=== PATIENT | female | born 1990 | race African-American/Black ===

== ENCOUNTER 2016-12-28 09:40 | Emergency (ER) | payer SELFPAY ==
[2015-05-05 04:54] VITALS: BMI 26.6
[~2016-12-28 09:40] MED LIST: IBUPROFEN600 MG PO; PERCOCET 5-3251 TAB PO; PRENAVITE1 TAB PO
[2016-12-28 11:05] LABS: HCG SERUM NEGATIVE (NEGATIVE)
[2016-12-28 11:34] LABS: APPEARANCE CLOUDY (CLEAR); BILIRUBIN NEGATIVE (NEGATIVE); COLOR YELLOW (YELLOW); GLUCOSE NEGATIVE (NEGATIVE); KETONE NEGATIVE (NEGATIVE); LEUKOCYTE ESTERASE 2+ (NEGATIVE); NITRITE NEGATIVE (NEGATIVE); PROTEIN NEGATIVE (NEGATIVE)
[2016-12-28 11:35] LABS: BACTERIA MANY /hpf (NONE SEEN); MUCUS <1+ /lpf (NONE SEEN); RED CELLS - URINE OCC /hpf (0-5)
== END 2016-12-28 11:37 | disposition home or self-care (01) ==
LOC: D.ER 09:40
PROVIDERS: Physician Assistant
DX: B34.9 Viral infection, unspecified (principal); R50.9 Fever, unspecified; J01.90 Acute sinusitis, unspecified

== ENCOUNTER 2017-03-26 08:56 | Emergency (ER) | payer SELFPAY ==
[2015-05-05 04:54] VITALS: BMI 26.6
[2017-03-26 09:17] LABS: APPEARANCE CLEAR (CLEAR); BILIRUBIN NEGATIVE (NEGATIVE); COLOR YELLOW (YELLOW); GLUCOSE NEGATIVE (NEGATIVE); KETONE NEGATIVE (NEGATIVE); LEUKOCYTE ESTERASE NEGATIVE (NEGATIVE); NITRITE NEGATIVE (NEGATIVE); PROTEIN NEGATIVE (NEGATIVE); UROBILINOGEN NORMAL (NORMAL)
== END 2017-03-26 10:33 | disposition home or self-care (01) ==
LOC: D.ER 08:56
PROVIDERS: Emergency Medicine
DX: S39.012A Strain of muscle, fascia and tendon of lower back, initial encounter (principal); X50.0XXA Overexertion from strenuous movement or load, initial encounter; X50.9XXA Other and unspecified overexertion or strenuous movements or postures, initial encounter; Y93.89 Activity, other specified; Y92.89 Other specified places as the place of occurrence of the external cause; M54.5 Low back pain

== ENCOUNTER 2017-06-07 12:15 | Emergency (ER) | payer SELFPAY ==
[2015-05-05 04:54] VITALS: BMI 26.6
== END 2017-06-07 14:35 | disposition home or self-care (01) ==
LOC: D.ER 12:15
DX: K05.10 Chronic gingivitis, plaque induced (principal); K02.9 Dental caries, unspecified

== ENCOUNTER → 2019-04-23 15:40 | Outpatient (CLI) | payer MEDICAID ==
[2015-05-05 04:54] VITALS: BMI 26.6
[~2019-04-23 15:40] MED LIST changes: +FERROUS SULFAT325 MG PO; +GLYBURIDE2.5 MG PO; +HYDROCODON-ACE1 EA10 PO; +MOTRIN600 MG PO
== END | disposition home or self-care (01) ==
LOC: D.LDO 15:40
PROVIDERS: ATTEND Obstetrics & Gynecology
DX: O24.419 Gestational diabetes mellitus in pregnancy, unspecified control (principal); Z3A.00 Weeks of gestation of pregnancy not specified

== ENCOUNTER → 2019-04-27 12:08 | Outpatient (CLI) | payer MEDICAID ==
[2015-05-05 04:54] VITALS: BMI 26.6
[~2019-04-27 12:08] MED LIST changes: -GLYBURIDE2.5 MG PO; -HYDROCODON-ACE1 EA10 PO; -MOTRIN600 MG PO
== END | disposition home or self-care (01) ==
LOC: D.LDO 12:08
PROVIDERS: ATTEND Obstetrics & Gynecology
DX: O24.419 Gestational diabetes mellitus in pregnancy, unspecified control (principal); Z3A.35 35 weeks gestation of pregnancy

== ENCOUNTER → 2019-05-01 13:07 | Outpatient (CLI) | payer MEDICAID ==
[2015-05-05 04:54] VITALS: BMI 26.6
== END | disposition home or self-care (01) ==
LOC: D.LDO 13:07
PROVIDERS: ATTEND Obstetrics & Gynecology
DX: O26.899 Other specified pregnancy related conditions, unspecified trimester (principal); Z3A.00 Weeks of gestation of pregnancy not specified

== ENCOUNTER → 2019-05-04 15:15 | Outpatient (CLI) | payer MEDICAID ==
[2015-05-05 04:54] VITALS: BMI 26.6
[~2019-05-04 15:15] MED LIST changes: +GLYBURIDE2.5 MG PO; +HYDROCODON-ACE1 EA10 PO; +MOTRIN600 MG PO
== END | disposition home or self-care (01) ==
LOC: D.LDO 15:15
PROVIDERS: ATTEND Obstetrics & Gynecology
DX: O24.913 Unspecified diabetes mellitus in pregnancy, third trimester (principal); Z3A.36 36 weeks gestation of pregnancy

== ENCOUNTER → 2019-05-07 12:43 | Outpatient (CLI) | payer MEDICAID ==
[2015-05-05 04:54] VITALS: BMI 26.6
[~2019-05-07 12:43] MED LIST changes: -GLYBURIDE2.5 MG PO; -HYDROCODON-ACE1 EA10 PO; -MOTRIN600 MG PO
== END | disposition home or self-care (01) ==
LOC: D.LDO 12:43
PROVIDERS: ATTEND Obstetrics & Gynecology
DX: O24.913 Unspecified diabetes mellitus in pregnancy, third trimester (principal); Z3A.36 36 weeks gestation of pregnancy

== ENCOUNTER → 2019-05-11 11:13 | Outpatient (CLI) | payer MEDICAID ==
[2015-05-05 04:54] VITALS: BMI 26.6
== END | disposition home or self-care (01) ==
LOC: D.LDO 11:13
PROVIDERS: ATTEND Obstetrics & Gynecology
DX: O24.429 Gestational diabetes mellitus in childbirth, unspecified control (principal); Z3A.37 37 weeks gestation of pregnancy

== ENCOUNTER → 2019-05-15 11:40 | Outpatient (CLI) | payer MEDICAID ==
[2015-05-05 04:54] VITALS: BMI 26.6
[~2019-05-15 11:40] MED LIST changes: +GLYBURIDE2.5 MG PO
== END | disposition home or self-care (01) ==
LOC: D.LDO 11:40
PROVIDERS: ATTEND Obstetrics & Gynecology
DX: O24.419 Gestational diabetes mellitus in pregnancy, unspecified control (principal); Z3A.37 37 weeks gestation of pregnancy

== ENCOUNTER → 2019-05-18 11:00 | Outpatient (CLI) | payer MEDICAID ==
[2015-05-05 04:54] VITALS: BMI 26.6
== END | disposition home or self-care (01) ==
LOC: D.LDO 11:00
PROVIDERS: ATTEND Obstetrics & Gynecology
DX: O24.419 Gestational diabetes mellitus in pregnancy, unspecified control (principal); Z3A.38 38 weeks gestation of pregnancy; O76 Abnormality in fetal heart rate and rhythm complicating labor and delivery

== ENCOUNTER 2019-05-23 05:05 | Inpatient (IN) | payer MEDICAID ==
[~2019-05-23] VITALS: Ht 157.5 cm; Wt 74.8 kg
[2019-05-23] VITALS (10 sets, daily range): BP systolic 102–135; BP diastolic 66–86; Ht 157.5 cm; Wt 74.8 kg
[2019-05-23 06:21] LABS: HEMOGLOBIN 11.6 g/dL (12-16); MCH 26.3 pg (26.0-34.0); MCHC 33.1 g/dL (31.0-37.0); MCV 79.4 fL (80.0-100.0); MEAN PLATELET VOLUME 11.5 fL (7.4-10.4); RBC 4.41 10x6/uL (4.00-5.40); WBC 5.8 10x3/uL (4.8-10.8)
[2019-05-23 06:22] LABS: APPEARANCE CLEAR (CLEAR); COLOR YELLOW (YELLOW)
[2019-05-23 06:23] LABS: BILIRUBIN NEGATIVE (NEGATIVE); GLUCOSE NEGATIVE (NEGATIVE); KETONE SMALL mg/dL (NEGATIVE); NITRITE NEGATIVE (NEGATIVE); PROTEIN NEGATIVE (NEGATIVE); UROBILINOGEN NORMAL (NORMAL)
--- NOTE | 2019-05-23 15:00 | NUR ---
BABY IS IN MOMS ARMS AT THIS TIME
--- NOTE | 2019-05-23 15:34 | NUR ---
RECEIVED PT VIA BED FROM [facility] POST PRIMARY PER DR COBOS, PT TO ROOM 1274, VS INITIATED, IV IN RIGHT HAND INTACT WITH NO REDNESS OR EDEMA, NO OXYTOCIN NOTED TO BE INFUSING AT THIS TIME FROM RR, NEW BAG HUNG TO INFUSE AT 125ML/HR VIA PUMP PER MD ORDERS, SEE EMAR, FF, ML, U/1 PER IMAN ALMONTE RN, [employer] WITH DRESSING CDI, ICE PACK TO ABD, SCANT VAG BLEEDING NOTED, ICE PACK TO PERINIUM PER IMAN ALMONTE RN, NAIDU CATH INTACT DRAINING LIGHTLY BLOOD TINGED, MILKY URINE, SEE DOCTORS NOTES, SCD'S CONNECTED TO PUMP AND WORKING PROPERLY, PT [employer] PAIN 06/23, INFORMED PT THAT I WILL ADM PAIN MED PER MD ORDERS, PT VERBALIZES UNDERSTANDING, PT ORIENTED TO ROOM, BED IN LOW POSITION, SIDE RAILS X 2, CALL LIGHT IN REACH, FAMILY IN ROOM
--- NOTE | 2019-05-23 15:57 | NUR ---
DILAUDID BEREAVEMENT PROGRAM COORDINATOR INITIATED PER MD ORDERS, SEE EMAR, PT INST ON BEREAVEMENT PROGRAM COORDINATOR, VERBALIZES UNDERSTANDING, PT PUSHES BEREAVEMENT PROGRAM COORDINATOR BUTTON AT THIS TIME
--- NOTE | 2019-05-23 16:12 | NUR ---
PT RESTING, [employer] PAIN 05/23, PT STATES "IT'S A LITTLE BETTER", ADM BOLUS PER MD ORDERS, SEE EMAR, PT DENIES FURTHER NEEDS, FAMILY AT BEDSIDE, BEDSIDE IN LOW POSITION, SIDE RAILS X 2, CALL LIGHT IN REACH
--- NOTE | 2019-05-23 16:20 | NUR ---
dr. gaitan paged, and returns phone call. questioned md regarding transfusing 2nd unit of blood, as received in report by kwan, recovery room, rn. telephone order received from md to wait and see what the 1899 cbc results are, call md with results to see if 2nd unit is needed.
--- NOTE | 2019-05-23 16:45 | NUR ---
PT AWAKE, [employer] PAIN -05/23, STATES "IT'S OK", FF, ML, U/1, LITE BLEEDING NOTED WITH NO CLOTS, DK CARE DONE WITH WET WARM WASH CLOTHS, FRESH ICE PACK TO PERINIUM, VS CONTINUE, I&O'S COLLECTED, PT PUSHES TOOL HONING MACHINE SET UP OPERATOR BUTTON DURING THIS TIME, PT REQUESTED AND SERVED H20, DENIES FURTHER NEEDS, FAMILY IN ROOM
--- NOTE | 2019-05-23 17:00 | NUR ---
BABY TO ROOM VIA OPEN CRIB CART PER VALERIA VANESSA, TRUCK BENCH MECHANIC
--- NOTE | 2019-05-23 17:15 | NUR ---
PT HOLDING INFANT, DINNER TRAY SERVED PER [place], DENIES FURTHER NEEDS AT THIS TIME, EXTRA DINNER TRAYS SERVED TO PT'S MOM AND FOB, BED IN LOW POSIITON, SIDE RAILS X 2, CALL LIGHT IN REACH
--- NOTE | 2019-05-23 18:15 | NUR ---
PT HOLDING AT THIS TIME, PT INST ON AND DEMONSTRATED I.S. WITH GOOD EFFORT, PT [facility] PAIN -05/23, PT STATES "PLEASE DON'T TURN ME RIGHT NOW, I JUST GOT COMFORTABLE", ICE PACK TO PERINIUM REMOVED, LITE BLEEDING NOTED WITH NO CLOTS, DK PAD PLACED AT THIS TIME, ICE PACK TO ABD, POC DISCUSSED WITH PT, PT VERBALIZES UNDERSTANDING, DENIES NEEDS AT THIS TIME, BED IN LOW POSITION, SIDE RAILS X 2, CALL LIGHT IN REACH
--- NOTE | 2019-05-23 18:24 | NUR ---
FOB AND OTHER CHILD TO ROOM, PILLOW AND BLANKET PROVIDED FOR OTHER CHILD
[2019-05-23 18:43] LABS: BASOPHILS 0.1 % (0-2); EOSINOPHILS 0 % (0-7); HEMATOCRIT 33.7 % (36.0-48.0); HEMOGLOBIN 11.1 g/dL (12-16); IMMATURE GRANULOCYTES 0.4 % (0-5); LYMPHOCYTES 3.7 % (15-50); MCH 26.7 pg (26.0-34.0); MCHC 32.9 g/dL (31.0-37.0); MCV 81.2 fL (80.0-100.0); MEAN PLATELET VOLUME 11.3 fL (7.4-10.4); MONOCYTES 6.2 % (2-11); NEUTROPHILS 89.6 % (40-80); PLATELET COUNT 168 10x3/uL (130-400); RBC 4.15 10x6/uL (4.00-5.40); RDW 14.2 % (11.5-14.5)
[2019-05-23 18:51] LABS: WBC 16.1 10x3/uL (4.8-10.8)
--- NOTE | 2019-05-23 19:09 | NUR ---
BEDSIDE SHIFT REPORT COMPLETED AT THIS TIME
--- NOTE | 2019-05-23 19:27 | NUR ---
DR COBOS CALLED WITH CBC RESULTS, NO NEW ORDERS NOTED.
--- NOTE | 2019-05-23 19:38 | NUR ---
SHIFT ASSESSMENT COMPLETED AT THIS TIME, SEE FLOWSHEET. PATIENT LYING IN BED WITH EYES OPEN, SPOT REMOVER IN USE. PT PUSHED HER BUTTON BEFORE REPOSITIONING. PT ASSISTED TO RIGHT SIDE AND PILLOW PLACED BEHIND HER BACK FOR COMFORT. PERICARE PERFORMED, SCANT BLEEDING NOTED TO PAD, CLEAN PAD PLACED. FUNDUS MASSAGED, FIRM/U+1/MIDLINE, NO CLOTS EXPRESSED. NAIDU CATHETER DRAINING TO GRAVITY, 250ML CLOUDY URINE EMPTIED. ABDOMINAL DRESSING IN PLACE, SMALL SEROSANGUINOUS DRAINAGE NOTED ON THE LOWER BORDER. VSS, SCD BOOTS REMAIN IN PLACE. BOWEL SOUNDS HYPOACTIVE IN ALL FOUR QUADRANTS. FAMILY REMAINS AT BEDSIDE FOR SUPPORT. BED LOW IN LOCKED POSITION, SIDERAILS UPX2, CALL BARTON AND TRAY TABLE IN REACH. WILL CONTINUE TO MONITOR.
--- NOTE | 2019-05-23 20:40 | NUR ---
PATIENT SITTING UP IN BED HOLDING INFANT, DENIES PAIN OR NEEDS AT THIS TIME. WILL CONTINUE TO MONITOR.
--- NOTE | 2019-05-23 21:15 | NUR ---
PT CALLED OUT LAND SURVEY TECHNICIAN BARTON REGARDING SPITTING UP. INFANTS BLANKET CHANGED AND THEN IT WAS NOTED THAT HAD A DIRTY DIAPER, DIAPER CHANGED AND SWADDLED IN BLANKET, NURSERY CALLED FOR CLEAN SHIRT. FRESH ICE PACK PLACED ON PTS ABDOMEN, FRESH ICE WATER PROVIDED, NAIDU CATHETER EMPTIED OF 150 ML CLOUDY URINE. PT DENIES PAIN OR OTHER NEEDS AT THIS TIME. WILL CONTINUE TO MONITOR.
--- NOTE | 2019-05-23 22:50 | NUR ---
PT LAYING IN BED HOLDING . INFANT PLACED IN OPEN CRIB. PERICARE PERFORMED WITH SCANT BLEEDING NOTED, CLEAN PAD PLACED AND PT REPOSITIONED TO LEFT SIDE. PILLOW PLACED BEHIND BACK FOR COMFORT. ICE PACK REMAINS ON ABDOMEN. PT DENIES NEEDS AT THIS TIME. WILL CONTINUE TO MONITOR. FAMILY REMAINS AT BEDSIDE FOR SUPPORT.
--- NOTE | 2019-05-23 23:30 | NUR ---
PT RESTING QUIETLY WITH EYES CLOSED. NO DISTRESS NOTED. NEW 1000ML NS WITH 20U PITOCIN HUNG VIA ALARIS PUMP AT 125ML/HR.
--- NOTE | 2019-05-24 01:15 | NUR ---
PT RESTING QUIETLY WITH EYES OPEN HOLDING INFANT. NO DISTRESS NOTED. WILL CONTINUE TO MONITOR.
--- NOTE | 2019-05-24 02:28 | NUR ---
NEW ASSISTANT STORE LEADER CARTRIDGE INFUSING AT THIS TIME, SEE EMAR. PT LYING IN BED HOLDING . FAMILY REMAINS AT BEDSIDE FOR SUPPORT. 250 ML CLOUDY NICOLE URINE EMPTIED FROM NAIDU CATHETER.
--- NOTE | 2019-05-24 02:43 | NUR ---
CALLED TO ROOM BY PATIENT, BLANKET PROVIDED FOR FAMILY AND AT THIS TIME. PT REPOSITIONED FOR COMFORT TO LEFT SIDE, PILLOW PLACED BEHIND BACK FOR COMFORT. NO OTHER NEEDS IDENTIFIED. WILL CONTINUE TO MONITOR
--- NOTE | 2019-05-24 02:58 | NUR ---
PATIENT COMPLAINING OF PAIN, ROUTE DELIVERY SERVICE DRIVER IN USE. PT REPOSITIONED TO LEFT SIDE.
--- NOTE | 2019-05-24 03:30 | NUR ---
FUNDUS MIDLINE/U/FIRM. ABDOMEN SOFT.
--- NOTE | 2019-05-24 03:30 | NUR ---
PT STATES THAT HER PAIN HAS NOT DIMINISHED, SUPERVISOR PARTIAL DENTURE DEPARTMENT BOLUS INITIATED PER MD ORDERS.
--- NOTE | 2019-05-24 04:58 | NUR ---
LAB CALLED FOR BLOOD DRAW
--- NOTE | 2019-05-24 05:02 | NUR ---
FRESH ICE PACK PLACED TO PTS ABDOMEN, 175ML NICOLE URINE EMPTIED FROM NAIDU. PTS PAIN HAS BEEN RELIEVED AND PT DENIES NEEDS.
--- NOTE | 2019-05-24 05:10 | NUR ---
CALLED TO ROOM BY PT TO HELP HER REPOSITION IN THE BED. PT PULLED HERSELF UP IN BED WHILE LYING ON HER BACK, HEAD OF BED ELEVATED TO 45 DEGREES. FRESH ICE WATER PROVIDED. PT DENIES OTHER NEEDS. WILL CONTINUE TO MONITOR.
[2019-05-24 05:58] LABS: BASOPHILS 0.1 % (0-2); EOSINOPHILS 0 % (0-7); HEMATOCRIT 28.5 % (36.0-48.0); HEMOGLOBIN 9.5 g/dL (12-16); IMMATURE GRANULOCYTES 0.3 % (0-5); MCH 26.8 pg (26.0-34.0); MCHC 33.3 g/dL (31.0-37.0); MCV 80.5 fL (80.0-100.0); MEAN PLATELET VOLUME 10.9 fL (7.4-10.4); NEUTROPHILS 84.6 % (40-80); PLATELET COUNT 153 10x3/uL (130-400); RBC 3.54 10x6/uL (4.00-5.40); RDW 14.1 % (11.5-14.5); WBC 13.2 10x3/uL (4.8-10.8)
[2019-05-24 07:05] VITALS: BP 120/70
--- NOTE | 2019-05-24 07:05 | NUR ---
RECEIVED PT LYING SUPINE IN BED. WAKES UPON ENTERING ROOM. VSS. HRRR WITHOUT AUDIBLE MURMUR. BBS CLEAR. BS X 2 UPPER QUADS. ABDOMEN SOFT/NON-DISTENDED. FUNDUS FIRM AT U/U. RUBRA LOCHIA SMALL AMT. PERIPAD CHANGED. NO CLOTS NOTED. ABDOMINAL DRESSING DRY WITHOUT DRAINAGE. NEG HOMANS' SIGN. PPP. MILD NON-PITTING EDEMA NOTED TO BLE. SCDS ON BLE. PUMP ON. NAIDU TO GRAVITY DRAINING CLOUDY, BLOOD-TINGED URINE. FRESH ICE PACK TO INCISION. PIV TO RIGHT WRIST. NS WITH PITOCING INFUSING AT 125 ML/HR. DILAUDID LINOTYPE MACHINIST APPRENTICE ALSO INFUSING PER ORDERS. PT STATES PAIN OF "7" ON 0-10 PAIN SCALE. STATES PAIN MED RELIEVING PAIN. SR UP X 2. CALL LIGHT IN REACH.
[2019-05-24 07:16] LABS: RAPID PLASMA REAGIN Non Reactive (Non Reactive)
--- NOTE | 2019-05-24 08:10 | NUR ---
PT LYING SUPINE IN BED. EYES CLOSED. RESP NON-LABORED. PT NOT DISTURBED TO ALLOW FOR REST. SR UP X 2. CALL LIGHT IN REACH.
--- NOTE | 2019-05-24 09:15 | NUR ---
PT WAKES UPON ENTERING ROOM. STATES DESIRE TO EAT BREAKFAST. BREAKFAST TRAY REHEATED. NAIDU TO GRAVITY DRAINING BLOOD-TINGED, CLOUDY URINE.
--- NOTE | 2019-05-24 09:41 | NUR ---
DR COBOS NOTIFIED OF BLOOD-TINGED URINE NOTED IN NAIDU TUBING. ORDERS RECEIVED AND TO PROCEED WITH DC OF NAIDU.
--- NOTE | 2019-05-24 10:18 | NUR ---
PIV CONVERTED TO SALINE LOCK. FLUSHES EASILY WITH 10 ML NS. SITE CLEAR. NAIDU DC'D WITH 380 ML OF CLOUDY, BLOOD-TINGED URINE NOTED IN BAG. PT INSTRUCTED TO NOTIFY NURSE OF NEED TO VOID.
--- NOTE | 2019-05-24 11:26 | NUR ---
PT C/O INCISIONAL PAIN "8" ON 0-10 PAIN SCALE. NORCO 10/325 GIVEN PO ORDERED. PT INSTRUCTED ON MED. VERBALIZES UNDERSTANDING.
[2019-05-24 12:15] VITALS: BP 120/74
--- NOTE | 2019-05-24 12:15 | NUR ---
PT CALLS ON LIGHT. STATES HAS URGE TO VOID. THIS NURSE TO ROOM. PT OOB AND AMB SLOWLY WITH STEADY GAIT TO BR. VOIDS 200 ML OF BLOOD-TINGED URINE. PERICARE DONE PER PT. PANTIES AND PAD ON.
[2019-05-24 12:23] LABS: BASOPHILS 0.1 % (0-2); EOSINOPHILS 0.2 % (0-7); HEMATOCRIT 29.3 % (36.0-48.0); HEMOGLOBIN 9.9 g/dL (12-16); IMMATURE GRANULOCYTES 0.3 % (0-5); LYMPHOCYTES 5.9 % (15-50); MCH 27.3 pg (26.0-34.0); MCHC 33.8 g/dL (31.0-37.0); MCV 80.7 fL (80.0-100.0); MEAN PLATELET VOLUME 10.7 fL (7.4-10.4); MONOCYTES 6.1 % (2-11); NEUTROPHILS 87.4 % (40-80); PLATELET COUNT 170 10x3/uL (130-400); RBC 3.63 10x6/uL (4.00-5.40); RDW 14.2 % (11.5-14.5)
--- NOTE | 2019-05-24 12:41 | NUR ---
PT AMBULATES BACK TO BED. SLOW, STEADY GAIT. SCDS BACK ON BLE. PUMP ON. MOTRIN 600 MG GIVEN PO ORDERED FOR PT C/O PAIN.
--- NOTE | 2019-05-24 12:51 | NUR ---
DR SMITH HERE. VISITS WITH PT.
--- NOTE | 2019-05-24 13:17 | NUR ---
DR COBOS CALLS. LAB RESULTS REPORTED. NO NEW ORDERS.
--- NOTE | 2019-05-24 14:20 | NUR ---
PT SITTING UP IN BED. COMPLETING PAPERWORK. DENIES C/O OR NEEDS. FAMILY IN ROOM WITH PT.
--- NOTE | 2019-05-24 15:21 | NUR ---
PT OOB AND AMB TO BR WITH SMOOTHER, STEADY GAIT. KELLEN WELL.
--- NOTE | 2019-05-24 15:26 | NUR ---
PT VOIDS 400 ML OF BLOOD-TINGED URINE. PERICARE DONE PER PT. PT BACK TO BED. KELLEN ACTIVITY WELL. SCDS ON WITH PUMP ON.
--- NOTE | 2019-05-24 15:31 | NUR ---
PT STATES C/O INCISIONAL PAIN OF "7" ON 0-10 PAIN SCALE. NORCO 10/325 GIVEN PO ORDERED. PT INSTRUCTED ON MED. VERBALIZES UNDERSTANDING.
--- NOTE | 2019-05-24 16:30 | NUR ---
PT SITTING UP IN BED. CARING FOR INFANT. DENIES C/O OR NEEDS.
--- NOTE | 2019-05-24 18:16 | NUR ---
PT SITTING UP IN BED. STATES VOIDED AND SHOWERED. PT MOTHER STATES FLUSHED URINE IN SPECIPAN. PT DENIES NEEDS OR C/O AT THIS TIME.
--- NOTE | 2019-05-24 18:58 | NUR ---
PATIENT SITTING UP IN BED EATING DINNER. FAMILY AT BEDSIDE. IN GRANDMOTHERS ARMS. BEDSIDE SHIFT REPORT COMPLETED WITH KOFI BA
--- NOTE | 2019-05-24 18:59 | NUR ---
IBUPROFEN 600MG PO PER MD ORDERS AND PT REQUEST. SEE EMAR
--- NOTE | 2019-05-24 20:09 | NUR ---
NORCO 10 MG PO PER MD ORDER AND PT REQUEST. SEE EMAR.
[2019-05-24 20:10] VITALS: BP 121/78
--- NOTE | 2019-05-24 20:10 | NUR ---
SHIFT ASSESSMENT COMPLETED, SEE FLOWSHEET.
--- NOTE | 2019-05-24 21:00 | NUR ---
PT SITTING UP IN BED, DENIES NEEDS AT THIS TIME, RATES HER PAIN 6/10 TO HER INCISION WHEN SHE MOVES. BED REMAINS LOCKED IN LOW POSITION, SIDE RAILS UPX2, CALL BARTON AND TRAY TABLE IN REACH. FAMILY REMAINS AT BEDSIDE FOR SUPPORT.
--- NOTE | 2019-05-24 22:40 | NUR ---
PATIENT VISITING WITH FAMILY, ICE WATER PROVIDED PER REQUEST. DENIES OTHER NEEDS. WILL CONTINUE TO MONITOR
--- NOTE | 2019-05-25 00:36 | NUR ---
PATIENT SITTING IN BED HOLDING WITH EYES CLOSED, EASILY AROUSED TO VERBAL AND PT EDUCATED ON SLEEPING WITH THE INFANT IN HER ARMS IN THE BED. ASKED PT IF I COULD PUT THE IN THE CRIB AT BEDSIDE AND SHE SAID NO THAT SHE WOULD STAY AWAKE. CALL BARTON AND TRAY TABLE IN REACH. WILL CONTINUE TO MONITOR
--- NOTE | 2019-05-25 01:14 | NUR ---
PAIN MEDICATION ADMINISTERED PER PT REQUEST, SEE EMAR
--- NOTE | 2019-05-25 02:27 | NUR ---
PT RESTING QUIETLY WITH EYES CLOSED, NO DISTRESS NOTED. WILL CONTINUE TO MONITOR
--- NOTE | 2019-05-25 04:30 | NUR ---
PT RESTING QUIETLY WITH EYES OPEN, NO DISTRESS NOTED. WILL CONTINUE TO MONITOR
--- NOTE | 2019-05-25 05:35 | NUR ---
PT CALLED OUT ACCOUNTS RECEIVABLE ADMINISTRATOR BARTON FOR HELP GETTING THE INFANT OUT OF THE CRIB. HANDED TO PT, DENIES OTHER NEEDS. WILL CONTINUE TO MONITOR.
--- NOTE | 2019-05-25 06:43 | NUR ---
PT SITTING UP IN BED HOLDING , NORCO 10/325MG PO PER PT REQUEST FOR 05/23 PAIN. SEE EMAR. PT DENIES OTHER NEEDS AT THIS TIME
[2019-05-25 07:46] VITALS: BP 113/68
--- NOTE | 2019-05-25 07:46 | NUR ---
RECEIVED PT IN SEMI-MOELLER'S POSITION. HOLDS WITH MUCH WARMTH SHOWN. VSS. HRRR WITHOUT AUDIBLE MURMUR. BBS CLEAR. BS X 4. ABDOMEN SOFT/NON-DISTENDED. FUNDUS FIRM AT U/U. RUBRA LOCHIA SMALL AMT. NO CLOTS NOTED. ABDOMINAL INCISION WITHOUT REDNESS, SWELLING OR DRAINAGE NOTED. NEG HOMANS' SIGN. PPP. MILD EDEMA NOTED TO ANKLES. PT STATES PAIN OF "6" ON 0-10 PAIN SCALE. MOTRIN 600 MG GIVEN PO ORDERED. SR UP X2. CALL LIGHT IN REACH.
--- NOTE | 2019-05-25 08:55 | NUR ---
PT SITTING UP IN BED. CARING FOR INFANT. DENIES C/O OR NEEDS.
--- NOTE | 2019-05-25 09:45 | NUR ---
PT REQUESTS AND RECEIVES [place]. DENIES C/O.
--- NOTE | 2019-05-25 11:30 | NUR ---
PT AMBULATORY IN HALLS. TOLERATING WELL.
--- NOTE | 2019-05-25 11:52 | NUR ---
PT C/O INCISIONAL PAIN. NORCO 10/325 GIVEN PO ORDERED. PT INSTRUCTED ON MED. VERBALIZES UNDERSTANDING.
[2019-05-25 12:24] VITALS: BP 118/76
--- NOTE | 2019-05-25 12:24 | NUR ---
PT SITTING UP IN BED. VISITS WITH FAMILY. VSS. INCISION WITHOUT REDNESS, SWELLING OR DRAINAGE NOTED. PT DENIES C/O OR NEEDS.
--- NOTE | 2019-05-25 13:03 | NUR ---
DR COBOS VISITS WITH PT.
[2019-05-25] MEDS ORDERED: MOTRIN600 MG PO (14:28)
[2019-05-25] MEDS ORDERED: HYDROCODON-ACE1 EA10 PO (14:28)
--- NOTE | 2019-05-25 14:30 | NUR ---
2 HOUR PP FSBS DONE. PT DENIES NEEDS OR C/O. AWAITING LABWORK TO BE DRAWN AT 1630.
--- NOTE | 2019-05-25 15:30 | NUR ---
SL DC'D WITH CATHELON INTACT. PRESSURE BANDAGE TO SITE. PT KELLEN WELL.
--- NOTE | 2019-05-25 17:34 | NUR ---
DR COBOS NOTIFIED NOT BEING DISCHARGED TODAY. ORDER RECEIVED TO CANCEL DISCHARGE.
--- NOTE | 2019-05-25 18:30 | NUR ---
PT C/O INCISIONAL PAIN OF "8" ON 0-10 PAIN SCALE. MOTRIN 600 MG AND NORCO 10/325 GIVEN PO ORDERED. PT INSTRUCTED ON MEDS. VERBALIZES UNDERSTANDING.
--- NOTE | 2019-05-25 19:07 | NUR ---
BEDSIDE REPORT REC'D FROM Britt DOWNEY RN. PT REC'D SITTING IN HIGH FOWLERS POSITION CONVERSING WITH SIGNIFICANT OTHER. DENIES NEEDS AT THIS TIME. BED IN LOW POSITION WITH UPPER SIDE RIALS RAISED X2. CALL LIGHT AND PHONE WITHIN REACH. WILL CONTINUE TO MONITOR.
[2019-05-25 19:44] VITALS: BP 131/72
--- NOTE | 2019-05-25 19:44 | NUR ---
SHIFT ASSESSMENT COMPLETED PER FLOWSHEET. VSS. FUNDUS FIRM, MIDLINE AND U2 WITH SCANT RUBRA LOCHIA, NO CLOTS NOTED. PAIN 2-3/10, ABD SORENESS AND CRAMPING WITH INCISIONAL BURNING, DENIES NEED FOR INTERVENTION, REPORTS THAT PAIN IS IMPROVED SINCE RECEIVING PAIN MEDICATION AT 1830. REPORT THAT IS VOIDING WITHOUT DIFFICULTY AND PASSING FLATUS "OCCASIONALLY." ENCOURAGED TO AMBULATE ON UNIT, VERBALIZES UNDERSTANDING. LOWER TRANSVERS ABD INCISION NOTED, WELL APPROXIMATED WITH LYUDMILA INTACT, DRIED BLOOD NOTED TO INCISION, NO DRAINAGE NOTED TO PERIPAD. PERIPAD OVER INCISION CHANGED. EDUCATED ON INCISIONAL CARE AND ENCOURAGED SHOWER, VERBALIZES UNDERSTANDING OF INCISIONAL CARE AND REFUSES SHOWER AT THIS TIME. POC DISCUSSED WITH PT AND SPOUSE, BOTH VERBALIZE UNDERSTANDING AND DENY QUESTIONS. INFANT IN FOB'S ARMS. REFUSES SCD'S. 1+ BLE EDEMA NOTED. BED IN LOW POSITION WITH UPPER SIDE RAILS RAISED X2. CALL LIGHT AND PHONE WITHIN REACH. WILL CONTINUE TO MONITOR AND ASSIST PRN.
--- NOTE | 2019-05-25 20:18 | NUR ---
AMBULATORY IN [place] WITH SPOUSE. ICE WATER PROVIDED PER REQUEST. STEADY GAIT NOTED. DENIES ADDITIONAL NEEDS. WILL CONTINUE TO MONITOR.
--- NOTE | 2019-05-25 20:59 | NUR ---
C/O "GAS PAIN" TO BILATERAL UPPER ABD. ENCOURAGED TO AMBULATE MORE. SIMETCONE GIVEN PER ORDER. PT EDUCATED ON MEDICATION, VERBALIZES UNDERSTANDING AND DENIES QUESTIONS.
--- NOTE | 2019-05-25 22:06 | NUR ---
SITTING ON EDGE OF BED WITH IN ARM. PAIN 4-5/10, STATES THAT SHE HAS NOT PAIN WHEN LAYING OR SITTING BUT PAIN INCREASES WITH ACTIVITY. REPORTS THAT SHE JUST GOT UP TO GET OUT OF CRIB. PAIN MEDS OFFERED AND DECLINED AT THIS TIME. STATES THAT SHE WILL CALL FOR THEM WHEN SHE IS READY. DENIES NEEDS. BED IN LOW POSITION WITH UPPER SIDE RAILS RAISED X2. CALL LIGHT AND PHONE WITHIN REACH. WILL CONTINUE TO MONITOR AND ASSIST PRN.
--- NOTE | 2019-05-25 23:22 | NUR ---
INFANT IN OPEN CRIB AT BEDSIDE. PT. REQUESTING PAIN MED. PRESENTLY LYING ON BACK WITH HOB 45 DEGREES.
[2019-05-25 23:25] VITALS: BP 123/77
--- NOTE | 2019-05-25 23:25 | NUR ---
VITAL SIGNS OBTAINED. PT. RATES INCISIONAL PAIN AN 8 OF 10 ON PAIN SCALE. STATES SHE JUST GOT INFANT TO SLEEP AND DESIRES TO SLEEP HERSELF. INQUIRED ABOUT PUTTING SCDS ON HER LEGS AND PT. DECLINED STATING THAT GET UP AND DOWN OFTEN WITH AND FEELS THAT SHE DOES NOT NEED THEM. OFFERED TO DIM LIGHTS IN ROOM AND PT. DECLINED.
--- NOTE | 2019-05-26 00:31 | NUR ---
JUST COMPLETED FEEDING AND IN OPEN CRIB. STATES PAIN HAS MUCH IMPROVED AND RATES A 6 OF 10 ON PAIN SCALE. REPORTS HURTS WHEN SHE CHANGES POSITIONS.
--- NOTE | 2019-05-26 02:07 | NUR ---
C/O INCISIONAL BURNING 05/23, MOTRIN GIVEN PER REQUEST. ICE WATER AND CUP OF ICE PROVIDED PER REQUEST. REPORTS THAT SHE JUST VOIDED. REPORTS THAT PAIN MEDICATION RELIEVES PAIN, BUT PAIN INCREASES WHEN SHE HAS TO GET UP AND MOVE AROUND. REPORTS THAT SHE JUST VOIDED. BED IN LOW POSITION WITH UPPER SIDE RAILS RAISED X2. CALL LIGHT AND PHONE WITHIN REACH. RESTING AT BEDSIDE IN OPEN CRIB.
--- NOTE | 2019-05-26 03:10 | NUR ---
PAIN REASSESSMENT COMPLETED, 02/21 CONSTANT INCISIONAL BURNING. REQUESTS NORCO, PROVIDED PER ORDER AND PT REQUEST. VSS. FUNDUS FIRM, MIDLINE AND U2 WITH SCANT RUBRA LOCHIA, NO CLOTS. LOWER TRANSVERSE ABD INCISION REMAINS WELL APPROXIMATED WITH LYUDMILA INTACT, NO DRAINAGE OR S/S OF INFECTION NOTED. IN NBN. REFUSES SCD'S. DENIES ADDITIONAL NEEDS. BED IN LOW POSITION WITH UPPER SIDE RAILS RAISED X2. CALL LIGHT AND PHONE WITHIN REACH. WILL CONTINUE TO MONITOR.
[2019-05-26 03:12] VITALS: BP 108/62
--- NOTE | 2019-05-26 03:48 | NUR ---
PAIN REASSESSMENT COMPLETED. LAYING ON RIGHT SIDE RESTING WITH EYES CLOSED. DOES NOT AROUSE TO DOOR OPENING. RESPIRATIONS REGULAR AND UNLABORED, NO S/S OF DISTRESS NOTED. BED IN LOW POSITION WITH UPPER SIDE RAILS RAISED X2. CALL LIGHT AND PHONE WITHIN REACH. WILL CONTINUE TO MONITOR AND ASSIST PRN.
--- NOTE | 2019-05-26 05:45 | NUR ---
RESTING QUIETLY WITH EYES CLOSED IN SEMI-FOWLERS POSITION. RESPIRATIONS REGULAR AND UNLABORED. NO S/S OF DISTRESS NOTED. INFANT RESTING IN OPEN CRIB AT BEDSIDE. BED IN LOW POSITION WITH UPPER SIDE RAILS RAISED X2. CALL LIGHT AND PHONE WITHIN REACH. WILL CONTINUE TO MONITOR AND ASSIST PRN.
[2019-05-26 07:02] VITALS: BP 123/84
--- NOTE | 2019-05-26 07:18 | NUR ---
ASSUMED CARE OF THIS PATIENT. SHIFT ASSESSMENT COMPLETED. NORCO 10 MG GIVEN PO FOR RELIEF OF 7/10 INCISIONAL AND BACK "ACHING". ANTICIPATE DC HOME TODAY. BOTTLEFEEDING, NON-SMOKER, O+ RUBELLA IMMUNE, GBS NEG. SITTING ON EDGE OF BED HOLDING . NURSERY RN TO ROOM FOR ASSESSMENT. DC INFORMATION WAS COMPLETED YESTERDAY, PT HAS RX FOR MOTRIN AND NORCO. PER [place] IMMUNIZATIONS RECORD WILL NEED TDAP. WILL OFFER TO PT THIS AM.
--- NOTE | 2019-05-26 07:57 | NUR ---
SITTING UP IN BED, SAYS HER PAIN IS GETTING BETTER "IT'S STARTING TO KICK IN" 03/23. DESIRES TDAP AFTER DISCUSSING IMMUNIZATION. LAST RECEIVED TDAP IN 2008, NON RECEIVED DURING PER RECORDS. DESIRES TDAP PRIOR TO DC. PHARMACY NOTIFIED.
--- NOTE | 2019-05-26 09:50 | NUR ---
DR COBOS VISITED PATIENT. ANTICIPATE DC HOME TODAY WITH .
--- NOTE | 2019-05-26 09:51 | NUR ---
LAYING IN BED HOLDING . DENIES NEEDING ANYTHING AT THIS TIME. WAITING ON DC.
--- NOTE | 2019-05-26 10:06 | NUR ---
DR COBOS ON L&D. V.O. WERE RECEIVED TO DC HOME WITH .
--- NOTE | 2019-05-26 11:45 | NUR ---
DC'D VIA WHEELCHAIR TO CAR AFTER PROVIDING VERBAL AND WRITTEN DC INSTRUCTIONS ON POST OPERATIVE C/S CARE, PP DEPRESSION, S&S INFECTION, DANGER SIGNS, MEDICATION ADMINISTRATION AND FOLLOW-UP. VERBALIZED UNDERSTANDING, NO SPECIFIC QUESTIONS ASKED. IN CARSEAT. FOB DRIVING. ALL BELONGINGS REMOVED FROM ROOM. HAS WRITTEN DC INSTRUCTIONS AND PRESCRIPTIONS.
--- NOTE | 2019-05-28 12:46 | MORECARE ---
CASE MANAGEMENT DISCHARGE SUMMARY PATIENT: ELIJAH MURO UNIT: [id number] ADM DATE: 05/23/19 AGE: 28 : 89 SEX: F ROOM/BED: D.1274 AUTHOR: ANTONIA BAKER PHYSICIAN: REFERRING PHYSICIAN: KYRA COBOS MD DATE OF SERVICE: 05/28/19 Discharge Plan Patient Name: ELIJAH [facility]URO [facility] : 1990 Planned Disposition: Anticipated Discharge Date: Discharge Date: 05/26/2019 Expected LOS: Initial Reviewer: [id number] Initial Review Date: 05/23/2019 Generated: 05/28/19 1:46 pm Patient Name: ELIJAH MURO Page [phone] at 1246 All edits/amendments must be made on the electronic document DICTATION DATE: 05/28/[address] LIGHT REPAIRER HELPER: THU 05/28/19 1246 RPT#: [id number] DC DATE:05/26/19 STATUS: DIS IN [facility] [address] [place] [address] END OF REPORT
== END 2019-05-26 11:45 | disposition home or self-care (01) | DRG 788 ==
LOC: D.LD 05:05 → D.SDCHOLD 10:21 → D.LD 10:22
PROVIDERS: ADMIT Obstetrics & Gynecology; ATTEND Obstetrics & Gynecology
PROC: 10D00Z1 Extraction of Products of Conception, Low, Open Approach (ICD-10-PCS; principal; 2019-05-23 11:00)
DX: O64.0XX0 Obstructed labor due to incomplete rotation of fetal head, not applicable or unspecified (principal); Z3A.38 38 weeks gestation of pregnancy; Z37.0 Single live birth; O62.1 Secondary uterine inertia

== ENCOUNTER 2021-01-11 05:54 | Emergency (ER) | payer MEDICAID ==
[~2021-01-11] VITALS: Ht 160 cm; Wt 87.1 kg
[~2021-01-11 05:54] MED LIST changes: +HYDROCODON-ACE1 EA10 PO; +IRON; +MOTRIN600 MG PO; +OMEPRAZOLE40 MG PO; +POTASSIUM; +ZOFRAN ODT4 MG/UDTAB PO; +ZOLOFT50 MG PO; +[UNRECOGNIZED DRUG - REMARK]
[2021-01-11 05:55] VITALS: BP 93/49; Ht 160 cm; Wt 87.1 kg
[2021-01-11 06:34] LABS: ALBUMIN 4.3 g/dL (3.4-5.0); ALKALINE PHOSPHATASE 81 U/L (30-120); ALT (SGPT) 38 U/L (10-68); AMYLASE - SERUM 84 U/L (25-115); BILIRUBIN - TOTAL 0.45 mg/dL (0.2-1.3); CALC OSMOLALITY 279 mosm/kg (275-300); CALCIUM 8.7 mg/dL (8.5-10.1); CARBON DIOXIDE 24.4 mmol/L (21.0-32.0); CHLORIDE - SERUM 104 mmol/L (98-107); CREATININE - SERUM 0.8 mg/dL (0.6-1.3); GLUCOSE 131 mg/dL (74-106); LIPASE 65 U/L (73-393); PROTEIN - SERUM 8.2 g/dL (6.4-8.2); SODIUM 140 mmol/L (136-145); UREA NITROGEN 9 mg/dL (7-18); eGFR NON AFRICAN AMERICAN 90 mL/min (90-120)
[2021-01-11 06:34] LABS: HCG URINE NEGATIVE (NEGATIVE)
[2021-01-11 06:35] LABS: BILIRUBIN NEGATIVE (NEGATIVE); KETONE MODERATE mg/dL (NEGATIVE); NITRITE NEGATIVE (NEGATIVE); UROBILINOGEN NORMAL mg/dL (< 2)
[2021-01-11 06:36] LABS: SQUAMOUS EPITHELIAL 0-5 HPF (0-4); WHITE CELLS - URINE 0-5 HPF (0-4)
[2021-01-11 06:37] LABS: BASOPHILS 0.2 % (0-2); EOSINOPHILS 0 % (0-7); HEMATOCRIT 37.8 % (36.0-48.0); HEMOGLOBIN 12.7 g/dL (12-16); LYMPHOCYTE ABS# 0.67 10x3/uL (1.18-3.74); LYMPHOCYTES 10.3 % (15-50); MCH 26.3 pg (26.0-34.0); MCHC 33.6 g/dL (31.0-37.0); MCV 78.3 fL (80.0-100.0); NEUTROPHIL ABS# 5.69 10x3/uL (1.56-6.13); NEUTROPHILS 87.5 % (40-80); PLATELET COUNT 345 10x3/uL (130-400); RBC 4.83 10x6/uL (4.00-5.40); RDW 13.3 % (11.5-14.5); WBC 6.5 10x3/uL (4.8-10.8)
[2021-01-11 06:37] LABS: BACTERIA FEW HPF (NONE SEEN)
[2021-01-11 06:39] LABS: POTASSIUM - SERUM 2.8 mmol/L (3.5-5.1)
[2021-01-11] MEDS ORDERED: MACROBID100 MG PO (07:53)
[2021-01-11] MEDS ORDERED: CEPHALEXIN500 M1 PO (07:53)
[2021-01-11] MEDS ORDERED: ZOFRAN ODT4 MG/UDTAB PO (07:53)
[2021-01-11] MEDS ORDERED: IBUPROFEN800 MG PO (07:54)
[2021-01-11] MEDS ORDERED: ACETAMINOPHEN500 M1 PO (07:54)
== END 2021-01-11 08:11 | disposition home or self-care (01) ==
LOC: D.ER 05:54
PROVIDERS: Family Medicine
DX: R11.2 Nausea with vomiting, unspecified (principal); R19.7 Diarrhea, unspecified; N39.0 Urinary tract infection, site not specified; E87.6 Hypokalemia; B34.9 Viral infection, unspecified; K21.9 Gastro-esophageal reflux disease without esophagitis; R10.30 Lower abdominal pain, unspecified